=== PATIENT | female | born 1965 | race African-American/Black ===

== ENCOUNTER 2025-02-17 13:26 | Emergency (ER) | payer OTHER, SELFPAY ==
[2025-02-17 13:38] VITALS: BP 124/62; PULSE 69; RESP 18; TEMP 36.3; O2SAT 96; BMI 46.2
--- NOTE | 2025-02-17 13:39 | ED.SKABFB ---
HPI - Skin/Abscess/Foreign Bdy General Chief complaint: General Medical Stated complaint: rash Time Seen by Provider: 02/17/25 15:03 Source: patient, RN notes reviewed and old records reviewed Mode of arrival: ambulatory Limitations: no limitations History of Present Illness ED Provider: Shelly RIOS narrative: 59-year-old female presents for evaluation of a rash to her arms and legs. She also reports 1 area rash on her right upper back. She reports her symptoms 1st started Wednesday. This seemed to worsen 2 days ago. She has not seen anybody for this She tried some topical steroids which she had left over from a prescription in October which did not seem to help her symptoms pain She denies any soaps, lotions, detergents, medications. She states that the itching is so bad that it is keeping her up at night. She does garden every night but has not noticed any tick bites Related Data Previous Rx's ?Medication ?Instructions ?Recorded dexamethasone 4 mg tablet 4 mg PO DAILY #3 tabs 02/17/25 hydroxyzine HCl 25 mg tablet 25 mg PO QID PRN itching #20 tabs 02/17/25 Allergies Allergy/AdvReac Type Severity Reaction Status Date / Time bee pollen (bee stings) Allergy Anaphylaxis Verified 02/17/25 13:42 carbamazepine (From Tegretol) Allergy Nausea and Verified 02/17/25 13:42 Vomiting Penicillins (PCN) Allergy Nausea and Verified 02/17/25 13:42 Vomiting Review of Systems Constitutional: Constitutional: Denies body ache(s), Denies chills and Denies fever(s) ENT: Denies vertigo and Denies dizziness Cardiovascular: Cardiovascular: Denies dyspnea on exertion Respiratory: Respiratory: Denies cough and Denies dyspnea on exertion Gastrointestinal: Gastrointestinal: Denies abdominal pain, Denies nausea and Denies vomiting Integumentary/Breasts: Skin/Breast: Reports pruritus, Reports erythema, Reports rash and Denies wounds Neurologic: Denies vertigo and Denies dizziness PMF Social History Social History Advance Directives: No Advance Directives Information Provided: Yes Physical Exam Vital Signs: Vital Signs: Last Vital Signs Temp 97.3 F 02/17/25 13:38 Pulse 69 02/17/25 13:38 Resp 18 02/17/25 13:38 BP 124/62 02/17/25 13:38 Pulse Ox 96 02/17/25 13:38 O2 Del Method Room Air 02/17/25 13:38 BMI result Body Mass Index 46.2 Const: General: healthy appearing, comfortable, no acute distress, alert and awake Nutritional Appearance: well nourished Orientation/consciousness: patient oriented x3 HEENT: Head: Yes normocephalic and Yes atraumatic Eyes: Eyelids: Yes eyelids normal Conjunctivae: conjunctivae normal Sclerae: sclerae normal Corneas: corneas normal Pupils: Equal, round and reactive pupils present EOM: EOMs intact bilaterally Neck: Neck: Yes full ROM Resp: Effort & Inspection: normal respiratory effort, able to speak in complete sentences and not labored Cardio: Rate: regular rate Rhythm: regular rhythm Skin: Other: Patient has scattered macular erythematous rash mostly to the extremities. The worst area is to the right upper arm. There are 2 lesions on the left upper arm. There was 1 lesion on the right upper back. No open wounds, no vesicles, no scaling, no streaking erythema. No fluctuance General skin exam: elasticity normal Neuro: General: patient oriented x3 Cranial nerves: Yes CN's II-XII intact bilaterally, Yes Equal, round and reactive pupils present and Yes Bilaterally intact EOM present Cognition (Neuro): normal cognition Course Course Course Narrative: This is a Rapid Medical Examination (RME) performed by Jessica Woodard PA-C in triage. Full HPI, ROS, assessment and treatment plan per primary provider in the Main ED. Hx: 59 yo F here for eval of rash to extremities and back. saw her PCP, prescribed steroid cream - rash is worsening. 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 reports intense itching to extremities/back/ saclp, cannot sleep. no new soaps/lotions/detergents. no new meds other than steroid cream. unknown tick/insect exposure. has not been in any hotels recently. Plan: labs, tick/lyme Medical Decision Making Medical Decision Making MDM Narrative: The patient's rash is most consistent with a insect or bug bite of some sort. Lyme testing is pending. Labs are relatively unremarkable. The patient is quite upset about the amount of itching she is experiencing. This is not appear to be an infectious rash or an allergic rash. I did agree to keep the patient is short course of oral steroids which may help with her discomfort and we will give hydroxyzine for itching. The patient is due to see Dermatology and immunology but does not yet have an appointment Differential Diagnosis Differential Diagnoses: The differential diagnosis associated with the presentation includes Acute dermatitis Insect bite Bug bite Cellulitis Scabies Bedbugs Lyme disease less likely Lab Data MDM Lab Attestation statement: I reviewed the patient's lab results. No leukocytosis or anemia. Normal platelet count. No significant electrolyte abnormalities. No left shift 02/17/25 13:47 02/17/25 13:47 Labs: Lab Results 02/17/25 Range/Units 13:47 WBC 9.5 (4.8-10.8) X10*3/uL RBC 4.89 (4.20-5.50) X10*6/uL Hgb 13.8 (12.0-16.0) g/dl Hct 42.4 (37.0-47.0) % MCV 86.7 (80.0-98.0) fL MCH 28.2 (27.0-33.0) pg MCHC 32.5 (31.0-35.0) g/dl RDW 14.8 (11.0-16.0) % Plt Count 194 (160-400) X10*3/uL MPV 12.0 (9.4-12.3) fL Immature Gran % (Auto) 0.3 (0.0-0.4) % Neut % (Auto) 61.3 (45-73) % Lymph % (Auto) 28.4 (20-40) % Towner % (Auto) 5.6 (2-11) % Eos % (Auto) 3.2 (0-4) % Baso % (Auto) 1.2 (0-2) % Lymph # (Auto) 2.7 (1.2-4.9) X10*3/uL Towner # (Auto) 0.5 (0.1-1.2) X10*3/uL Eos # (Auto) 0.3 (0.0-0.4) X10*3/uL Baso # (Auto) 0.1 (0.0-0.2) X10*3/uL Abs Immat Gran (auto) 0.03 (0.00-0.03) X10*3/uL Absolute Neuts (auto) 5.8 (2.0-8.3) x10*3/uL Absolute Nucleated RBC 0.000 (0.0-0.012) X10*3/uL Nucleated RBC % (auto) 0.0 (0.0-0.2) /100WBC Sodium 143 (135-145) mmol/L Potassium 3.8 (3.3-5.1) mmol/L Chloride 108 (96-108) mmol/L Carbon Dioxide 28 (22-29) mmol/L Anion Gap 11 L (12-20) BUN 15 (9-16) mg/dL Creatinine 0.93 (0.5-1.4) mg/dL Estim Creat Clear Calc 90.7 Estimated GFR > 60 Random Glucose 108 (60-115) mg/dL Calcium 8.6 (8.4-10.2) mg/dL Magnesium 2.0 (1.6-2.6) mg/dL Total Bilirubin 0.6 (0.0-1.0) mg/dL AST 25 (5-31) U/L ALT 26 (0-31) U/L Alkaline Phosphatase 88 (39-117) U/L Total Protein 6.3 L (6.5-8.0) g/dL Albumin 3.8 (3.5-5.0) g/dL Discharge Plan Discharge Clinical Impression: Dermatitis Patient Disposition: Home, Self-Care Instructions: Dermatitis (ED) Additional Instructions: Your rash is consistent with a type of bug bite. You have a Lyme panel pending and will call you with the results are positive. You may take dexamethasone daily for the next 3 days to help with inflammation. Take hydroxyzine every 4-6 hours as needed for itching Follow up with Dermatology and door immunology Return for new or worsening symptoms Prescriptions: New dexamethasone 4 mg tablet 4 mg PO DAILY Qty: 3 0RF hydroxyzine HCl 25 mg tablet 25 mg PO QID PRN (Reason: itching) Qty: 20 0RF Interventions: ED Discharge Assessment Last Done: 02/17/25 15:50 Print Language: Icelandic
[2025-02-17 13:56] LABS: MANUAL DIFF FLAG NO
[2025-02-17 14:05] LABS: Hematocrit 42.4 % (37.0-47.0); Hemoglobin 13.8 g/dl (12.0-16.0); Imm Gran Abs Auto 0.03 X10*3/uL (0.00-0.03); Imm Gran Pct Auto 0.3 % (0.0-0.4); Lymphocytes Absolute Auto 2.7 X10*3/uL (1.2-4.9); Mean Corpuscular HGB Conc 32.5 g/dl (31.0-35.0); Mean Corpuscular Hemoglobin 28.2 pg (27.0-33.0); Mean Corpuscular Volume 86.7 fL (80.0-98.0); NRBC Abs Auto 0.000 X10*3/uL (0.0-0.012); NRBC Pct Auto 0.0 /100WBC (0.0-0.2); Platelet Count 194 X10*3/uL (160-400); Red Blood Count 4.89 X10*6/uL (4.20-5.50); White Blood Count 9.5 X10*3/uL (4.8-10.8)
[2025-02-17 14:15] LABS: Alanine Aminotransferase 26 U/L (0-31); Albumin Level 3.8 g/dL (3.5-5.0); Alkaline Phosphatase 88 U/L (39-117); Anion Gap 11 (12-20); Aspartate Amino Transferase 25 U/L (5-31); Blood Urea Nitrogen 15 mg/dL (9-16); Calcium 8.6 mg/dL (8.4-10.2); Carbon Dioxide 28 mmol/L (22-29); Chloride 108 mmol/L (96-108); Creatinine Clr Calc Pharmacy 90.7; Estimated Glomerular Filt Rate > 60; Magnesium 2.0 mg/dL (1.6-2.6); Potassium 3.8 mmol/L (3.3-5.1); Sodium 143 mmol/L (135-145); Total Protein 6.3 g/dL (6.5-8.0)
[2025-02-17 15:50] VITALS: BP 145/86; PULSE 54; RESP 18; TEMP 36.5; O2SAT 97
[2025-02-19 21:54] LABS: Lyme Abs Screen <0.90 index
[2025-02-20 01:12] LABS: A. Phagocytphilium DNA,RT-PCR NOT DETECTED (NOT DETECTED); Babesia Microti DNA, RT-PCR NOT DETECTED (NOT DETECTED); Borrelia Miyamotoi,DNA RT-PCR NOT DETECTED (NOT DETECTED); E.Chaffeensis DNA RT-PCR NOT DETECTED (NOT DETECTED); Lyme(Borrelia ssp)DNA RT-PCR NOT DETECTED (NOT DETECTED)
== END 2025-02-17 15:52 | disposition home or self-care (01) ==
PROVIDERS: Physician Assistant Medical; Emergency Provider Emergency Medicine
DX: L30.9 Dermatitis, unspecified (principal); Z79.899 Other long term (current) drug therapy
CPT/HCPCS: 36415; 80053; 83735; 85025; 86617; 86618; 87468; 87469; 87478; 87484; 87798; 99282; 99283

== ENCOUNTER 2025-03-27 23:29 | Emergency (ER) | payer OTHER, SELFPAY ==
[2025-03-27 23:37] VITALS: BP 126/79; PULSE 74; RESP 16; TEMP 36.2; O2SAT 96; BMI 46.8
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
[2025-03-28 01:28] VITALS: BP 126/79; PULSE 74; RESP 16; TEMP 36.2; O2SAT 96
== END 2025-03-28 01:28 | disposition home or self-care (01) ==
PROVIDERS: Emergency Provider Emergency Medicine; PCP Internal Medicine
DX: T20.16XA Burn of first degree of forehead and cheek, initial encounter (principal); X12.XXXA Contact with other hot fluids, initial encounter; Y93.G3 Activity, cooking and baking; Y92.9 Unspecified place or not applicable; Y99.9 Unspecified external cause status
CPT/HCPCS: 99282; 99283

== ENCOUNTER 2025-03-30 09:48 | Emergency (ER) | payer OTHER, SELFPAY ==
[2025-03-30 10:04] VITALS: BP 138/73; PULSE 77; RESP 16; TEMP 36.4; O2SAT 94; BMI 46.6
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
[2025-03-30] MEDS: Lidocaine 4 % Cream KIT 1 APPL TOPICAL (11:41)
[2025-03-30] MEDS: Diphth,Pertus(ACell),Tet Adult 0.5 ML SYRINGE IM (11:42)
[2025-03-30] MEDS: Morphine Sulfate Immed Release 15 MG TABLET PO (11:42)
--- OUTSIDE RECORDS SUMMARY | 2025-03-30 11:52 | XMS_ITS | Clinical Summary ---
Author Organization [facility] it[facility] Address [address] [place] [address] Care Team Providers Care Candy Puller Name Role Phone Unavailable Primary Care Provider Unavailabl e Social History Tobacco Use Types Packs/Day Years Used Date Smoking Tobacco: Never Assessed Comments Unknown Sex and Gender Information Value Date Recorded Sex Assigned at Not on file Legal Sex Female 12:45 AM EST Gender Identity Not on file Sexual Orientation Not on file Plan of Treatment Health Maintenance Due Date Last Done Comments Breast Cancer Screening 1965 DTaP,Tdap,and Td Vaccines (1 - Tdap) 09/19/1982 Cervical Cancer Screening: P ap Smear 09/19/1984 Pneumococcal Vaccine: 50+ Ye ars (1 of 1 - PCV) 09/19/2013 Zoster Vaccines (1 of 2) 09/19/2013 Depression Screening 06/28/2024 HIV Screening 11/04/2024 Hepatitis C Screening 11/04/2024 Social Influencers of Health Screening 11/04/2024 COVID-19 Vaccine (1 - 2023-2 5 season) 2025 Influenza Vaccine (#1) 2025 Colorectal Cancer Screening: Colonoscopy 09/11/2026 09/11/2016 RSV Immunization Adult Patie nts (1 - 1-dose 75+ series) 09/19/2038 HIB Vaccines Aged Out No longer eligi ble based on patient's age to complete this topic HPV Vaccines Aged Out No longer eligi ble based on patient's age to complete this topic Hepatitis A Vaccines Aged Out No long er eligible based on patient's age to complete this topic Hepatitis B Vaccines Aged Out No long er eligible based on patient's age to complete this topic IPV Vaccines Aged Out No longer eligi ble based on patient's age to complete this topic MMR Vaccines Aged Out No longer eligi ble based on patient's age to complete this topic Meningococcal ACWY Vaccine Aged Out N o longer eligible based on patient's age to complete this topic Meningococcal B Vaccine Aged Out No l onger eligible based on patient's age to complete this topic RSV Immunization Patients Un froy 20 months Aged Out No longer eligible b ased on patient's age to complete this topic Varicella Vaccines Aged Out No longer eligible based on patient's age to complete this topic Procedures Procedure Name Priority Date/Time Associated Diagnosis Comments EXTERNAL COLONOSCOPY REPORT Routine 09/11/2016 4:14 PM EDT from Last 3 Months or Most Recently Relevant to Health Maintenance Results * External Colonoscopy Report (09/11/2016 4:14 PM EDT) Anatomical Region Laterality Modality Endoscopy us Historical Provider GI~PROCEDURE ORDERABLES F inal Result from Last 3 Months or Most Recently Relevant to Health Maintenance
[2025-03-30 11:58] VITALS: BP 142/79; PULSE 62; TEMP 36.6; O2SAT 96
[2025-03-30 12:14] VITALS: BP 142/79; PULSE 62; RESP 14; TEMP 36.6; O2SAT 96
== END 2025-03-30 12:18 | disposition home or self-care (01) ==
PROVIDERS: Emergency Provider Emergency Medicine; PCP Internal Medicine
DX: T21.21XA Burn of second degree of chest wall, initial encounter (principal); T31.0 Burns involving less than 10% of body surface; N64.4 Mastodynia; X12.XXXA Contact with other hot fluids, initial encounter; Y93.9 Activity, unspecified; Y92.9 Unspecified place or not applicable; Y99.9 Unspecified external cause status; Z23 Encounter for immunization
CPT/HCPCS: 90715; 96372; 99283; 99284

== ENCOUNTER 2025-04-02 16:23 | Emergency (ER) | payer OTHER, SELFPAY ==
[2025-04-02 16:39] VITALS: BP 138/81; PULSE 77; RESP 16; TEMP 36.8; O2SAT 94; BMI 44.1
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
--- OUTSIDE RECORDS SUMMARY | 2025-04-02 18:44 | XMS_ITS | Clinical Summary ---
Author Organization [facility] ity Address [address] [place] [address] Care Team Providers Care Anime Artist Name Role Phone Unavailable Primary Care Provider [...]
[2025-04-02 18:50] VITALS: BP 129/77; PULSE 76; RESP 18; TEMP 36.8; O2SAT 97
[2025-04-02 19:20] VITALS: BP 129/77; PULSE 76; RESP 18; TEMP 36.8; O2SAT 97
== END 2025-04-02 19:20 | disposition home or self-care (01) ==
PROVIDERS: Emergency Provider Emergency Medicine; PCP Internal Medicine
DX: L03.319 Cellulitis of trunk, unspecified (principal); N61.1 Abscess of the breast and nipple; T21.01XA Burn of unspecified degree of chest wall, initial encounter; T79.8XXA Other early complications of trauma, initial encounter; X08.8XXA Exposure to other specified smoke, fire and flames, initial encounter; Y93.9 Activity, unspecified; Y92.9 Unspecified place or not applicable; Y99.9 Unspecified external cause status
CPT/HCPCS: 99283

== ENCOUNTER 2025-04-10 13:50 | Outpatient (RCR) | payer OTHER, SELFPAY | END 2025-05-07 16:57 | disposition home or self-care (01) | LOC: HO.WCC 13:50 | PROVIDERS: PCP Internal Medicine; Visit Provider Surgery Surgical Oncology | DX: T21.21XA Burn of second degree of chest wall, initial encounter (principal); T31.0 Burns involving less than 10% of body surface; X10.1XXA Contact with hot food, initial encounter; Y93.G3 Activity, cooking and baking; Y92.9 Unspecified place or not applicable; Y99.9 Unspecified external cause status; G62.9 Polyneuropathy, unspecified; N18.30 Chronic kidney disease, stage 3 unspecified; Z87.891 Personal history of nicotine dependence | CPT/HCPCS: 99203; 99213 ==